=== PATIENT | male | born 1990 | race Caucasian/White ===

== ENCOUNTER 2017-09-28 13:40 | Emergency (ER) | payer SELFPAY ==
[2017-09-28] MEDS ORDERED: Silver Sulfadiazine 1% Crm 50 GM Tube TOP ONE (14:12)
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
== END 2017-09-28 14:30 | disposition home or self-care (01) ==
LOC: JP.ED 13:40
DX: T23.402A Corrosion of unspecified degree of left hand, unspecified site, initial encounter (principal); T22.411A Corrosion of unspecified degree of right forearm, initial encounter; Y99.0 Civilian activity done for income or pay
CPT/HCPCS: 16000; 99283; A9270; 16020

== ENCOUNTER 2021-09-11 20:24 | Emergency (ER) | payer BC | END 2021-09-11 23:15 | disposition home or self-care (01) | LOC: JP.ED 20:24 | DX: S63.91XA Sprain of unspecified part of right wrist and hand, initial encounter (principal); W01.0XXA Fall on same level from slipping, tripping and stumbling without subsequent striking against object, initial encounter; Y99.0 Civilian activity done for income or pay | CPT/HCPCS: 73130-26-RT; 73130-RT; 99281; 99283 ==